=== PATIENT | male | born 1935 | race Caucasian/White ===

== ENCOUNTER 2022-12-08 19:16 | Emergency (ER) | payer MEDICARE ==
[~2022-12-08] VITALS: Ht 180.3 cm; Wt 74.8 kg
[2022-12-08 19:37] VITALS: BP 147/71; PULSE 70; RESP 18; TEMP 98.2; O2SAT 97
[2022-12-08 19:52] VITALS: BP 147/71; PULSE 70; RESP 18; TEMP 98.2; O2SAT 97
== END 2022-12-08 23:50 ==
LOC: MED 19:16
DX: S00.83XA Contusion of other part of head, initial encounter (principal); F03.90 Unspecified dementia, unspecified severity, without behavioral disturbance, psychotic disturbance, mood disturbance, and anxiety; W18.39XA Other fall on same level, initial encounter; Y92.89 Other specified places as the place of occurrence of the external cause; Y93.89 Activity, other specified; Y99.8 Other external cause status
CPT/HCPCS: 70450; 72125; 99284